=== PATIENT | male | born 1970 | race Caucasian/White ===

== ENCOUNTER 2017-06-14 06:42 | Day surgery (SDC) | payer OTHER ==
[2017-06-10 10:34] VITALS: BMI 28.3
[~2017-06-14 06:42] MED LIST: BUPIVACAINE HCL/PF 0.5% (5MG/ML) 10 ML VIAL IJ ONE
[2017-06-14] MEDS ORDERED: SUCCINYLCHOLINE CHLORIDE 200 MG/10 ML VIAL ONE (07:50)
[2017-06-14] MEDS ORDERED: LIDOCAINE HCL/PF 2% SDV 5ML VIAL ONE (07:50)
[2017-06-14] MEDS ORDERED: PROPOFOL 20 ML ONE ×2 (07:50→07:53)
[2017-06-14] MEDS ORDERED: ROCURONIUM BROMIDE 50 MG/5 ML VIAL ONE (07:51)
[2017-06-14] MEDS ORDERED: MIDAZOLAM HCL 2 MG/2 ML SINGLE DOSE VIAL ONE (07:51)
[2017-06-14] MEDS ORDERED: DEXAMETHASONE SOD PHOSPHATE 4 MG/1 ML VIAL ONE ×2 (08:33→09:49)
[2017-06-14] MEDS ORDERED: ceFAZolin SODIUM 1 GM VIAL IVPB ONE (08:33)
[2017-06-14] MEDS ORDERED: ceFAZolin SODIUM 1 GM VIAL ONE (08:33)
[2017-06-14] MEDS ORDERED: GLYCOPYRROLATE 0.2 MG/1 ML VIAL ONE (09:46)
[2017-06-14] MEDS ORDERED: NEOSTIGMINE METHYLSULFATE 0.5 MG/ML - 10 ML MDV ONE (09:47)
[2017-06-14] MEDS ORDERED: BUPIVACAINE HCL/PF 0.5% (5MG/ML) 10 ML VIAL IJ ONE (09:59)
--- NOTE | 2017-06-14 10:06 | HP ---
History & Physical Update - History History: No Change - Physical Physical: No Change - Assessment Assessment: No Change - Plan Plan: No Change Currently as noted:: For robotic umbilical hernia with mesh
[2017-06-14] MEDS ORDERED: ONDANSETRON 4 MG/2 ML VIAL IVPB PRN (10:07)
[2017-06-14] MEDS ORDERED: HYDROmorphone HCL CARPU-JECT 1 MG/1 ML DISP.SYRIN IVPB PRN (10:07)
[2017-06-14] MEDS ORDERED: ACETAMINOPHEN 325 MG TABLET (FP) PO PRN (10:07)
--- NOTE | 2017-06-14 10:07 | OP ---
Operative Note - Note: Operative Date: 06/14/17 Pre-Operative Diagnosis: Umbilical hernia Operation: Robotic umbilical hernia with mesh Post-Operative Diagnosis: Same as Pre-op Surgeon: Silverio Lackey Insurance Operations Rep: Amy Markham Anesthesia: General Estimated Blood Loss (mls): 5 Operative Report Dictated: Yes
[2017-06-14] MEDS ORDERED: D5-1/2NS+20 MEQ KCL - 1,000 ML IV SCH (10:15)
[2017-06-14] MEDS ORDERED: HYDROmorphone HCL CARPU-JECT 2 MG/1 ML DISP.SYRIN ONE (10:25)
[2017-06-14] MEDS ORDERED: oxyCODONE HCL 5 MG TABLET PO PRN ×2 (10:29)
[2017-06-14] MEDS ORDERED: HYDROmorphone HCL CARPU-JECT 1 MG/1 ML DISP.SYRIN IVPUSH PRN (10:29)
[2017-06-14] MEDS ORDERED: LACTATED RINGERS SOLUTION 1,000 ML IV SCH (10:30)
--- NOTE | 2017-06-14 10:31 | SURG ---
Surgery [employer] Operator Note [employer] Operator: Amy Markham PA-C Date of Service: 06/14/17 Diagnosis: Umbilical hernia Procedure: Robotic umbilical hernia with mesh I was present for the entirety of the operative procedure. For further detail, please refer to operative report. Visit type - Case Type Case Type: Scheduled Admission - Emergency Emergency Visit: No - New patient This patient is new to me today: Yes Date on this admission: 06/14/17 - Critical Care Critical Care patient: No
[2017-06-14 11:34] VITALS: TEMP 98.4
[2017-06-14 15:59] VITALS: BP 156/90; PULSE 75
--- NOTE | 2017-06-14 16:47 | OP ---
DATE OF OPERATION: 06/14/2017 SURGEON: Silverio Lackey MD EDUCATION SALES CONSULTANT: NAHED Heard PREOPERATIVE DIAGNOSIS: Umbilical hernia. POSTOPERATIVE DIAGNOSIS: Umbilical hernia. PROCEDURE: Robotic umbilical hernia with mesh. SPECIMEN: None. ESTIMATED BLOOD LOSS: 5 mL DRAINS: None. ANESTHESIA: GET. REASON FOR PROCEDURE: This is a 47-year-old gentleman who presented to the office with complaints of pain/discomfort at his umbilical region. He was found to have an umbilical hernia on exam. Because of this, he was consented for robotic, possible open umbilical hernia repair with possible mesh. The risks and benefits of the procedure were explained. These included bleeding, infection, recurrence of hernia, CA, DVT, PE, injury to surrounding abdominal structures, mesh infection as some of the complications. He understood and signed informed consent. DESCRIPTION OF PROCEDURE: Patient was placed supine on the operating table. He underwent general endotracheal intubation. The abdomen was prepped and draped in usual sterile fashion. Timeout was performed. An incision was made in the left upper quadrant. A Veress needle was inserted. Pneumoperitoneum insufflated. The Veress needle was then removed, and an 8-mm optical robotic trocar was placed under direct visualization laparoscopically. The umbilical hernia was noted. An 8-mm robotic trocar was placed in the left lateral abdominal wall, and a third 8-mm robotic trocar placed in the left lower quadrant. The patient was placed in right-side down, was secured with a salmeron bag. Dissection was performed at the console. The overlying peritoneum was grasped and opened. The peritoneum was dissected in a rectorectus fashion starting approximately 5 cm proximal to the hernia defect and continuing approximately 5 cm distal to the defect. Once this was completed in its entirety, hemostasis was achieved with electrocautery. The hernia defect was closed with a No. 1 nonabsorbable V-Loc suture in a figure-of-8 fashion. The hernia defect was noted to be fully secured. A 12-cm Symbotex mesh was then chosen, and a loose suture placed within the center. This was inserted to the abdominal cavity, and a stab wound was made near the previous umbilical hernia defect. A Roberth-Melendez was inserted and used to grasp the suture to secure the mesh in place. The mesh was then secured using No. 1 nonabsorbable V-Loc suture in multiple positions. The mesh was noted to be in good position. The peritoneal flap was then closed using a 2-0 V-Loc suture nonabsorbable suture. Again, hemostasis was noted. All needles were noted to be removed, and the count was correct. Pneumoperitoneum was desufflated, and the patient was placed back in the supine position. Marcaine was injected at all wound sites, and all skin incisions were closed using 4-0 Biosyn. Sterile dressings were applied. The patient tolerated the procedure well, was transferred to recovery room in stable condition. Kody [id number]
== END 2017-06-14 15:15 | disposition home or self-care (01) ==
LOC: JASUSAT 06:42
PROVIDERS: ATTEND Surgery
PROC: 8E0W4CZ Robotic Assisted Procedure of Trunk Region, Percutaneous Endoscopic Approach (ICD-10-PCS; 2017-06-14)
PROC: 0WUF4JZ Supplement Abdominal Wall with Synthetic Substitute, Percutaneous Endoscopic Approach (ICD-10-PCS; principal; 2017-06-14 08:00)
DX: K42.9 Umbilical hernia without obstruction or gangrene (principal)
CPT/HCPCS: 49652; S2900; 94010; 94760